=== PATIENT | male | born 1960 | race Caucasian/White ===

== ENCOUNTER 2017-08-02 17:05 | Inpatient (IN) | payer MEDICARE ==
[~2017-08-02] VITALS: Ht 165.1 cm; Wt 56.3 kg
[~2017-08-02 17:05] MED LIST: ACET325T14 PO; AMPICILLIN TRIHYDRATE PO; CIPR500T87 PO; DIAZ5TAB PO; DIAZ5TAB4 PO; ENOX40SY4 SQ; FING0.5C3 PO; FLUC200T PO; LEVO500T47 PO; LEVO750T26 PO; LORA-445 PO; METR500T PO; NITR100C PO; NITR100C56 PO; NORT75CA PO; OXYB10TA PO; OXYB5TAB7 PO; PARO30TA3 PO; PARO30TA45 PO; TAMS0.4C2 PO
[2017-08-02] MEDS ORDERED: CEFTRIAXONE PMX 1GM/50ML 50 ML IVPB ONE (17:30)
[2017-08-02] MEDS ORDERED: SODIUM CHLORIDE 0.9% 1,000 ML IV ONE ×2 (17:30→19:00)
[2017-08-02] MEDS ORDERED: SODIUM CHLORIDE 0.9% 1,000ML IVBOLUS ONE ×2 (17:30→19:00)
[2017-08-02] MEDS ORDERED: SODIUM CHLORIDE FLUSH 10ML SYR IVF ONE (17:30)
[2017-08-02] MEDS ORDERED: CEFTRIAXONE PMX 1GM/50ML 50 ML ONE (17:58)
[2017-08-02] MEDS ORDERED: NITR100C56 PO (18:09)
[2017-08-02] MEDS ORDERED: OXYB15TA PO (18:09)
[2017-08-02] MEDS ORDERED: POTASSIUM CHLORIDE 40 MEQ in SODIUM CHLORIDE 0.9% 500 ML IV ONE (19:00)
[2017-08-02] MEDS ORDERED: DEXTROSE 50%, 50ML SYRINGE IVPush ONE (19:00)
[2017-08-02] MEDS ORDERED: CALCIUM CHLORIDE 13.6 MEQ in SODIUM CHLORIDE 0.9% 100 ML IV ONE (19:00)
[2017-08-02] MEDS ORDERED: ACETAMINOPHEN 650 MG SUPP PR ONE (19:00)
[2017-08-02] MEDS ORDERED: ACETAMINOPHEN 650 MG SUPP ONE (19:27)
[2017-08-02] MEDS: PLEASE ENTER ALLERGIES MC SCH ×4 (19:29→23:04)
[2017-08-02 19:53] LABS: BLOOD UREA NITROGEN 15 mg/dL (7-18)
[2017-08-02] MEDS ORDERED: VANCOMYCIN PER PHARMACY MC PRN (21:00)
[2017-08-02] MEDS ORDERED: DIAZEPAM 5 MG TABLET PO PRN (22:00)
[2017-08-02] MEDS ORDERED: ONDANSETRON 2MG/ML, 2ML IVPush PRN (22:00)
[2017-08-02] MEDS ORDERED: POLYETHYLENE GLYCOL 17 GM PACKET PO PRN (22:00)
[2017-08-02] MEDS ORDERED: HYDROmorphone 2 MG/ML, 1ML IVPush PRN (22:00)
[2017-08-02] MEDS ORDERED: DOCUSATE 100 MG CAPSULE PO PRN (22:00)
[2017-08-02] MEDS ORDERED: LIDOCAINE 1%, 20ML ONE (22:03)
[2017-08-02] MEDS ORDERED: PHENYLEPHRINE NASAL 1%, 15ML SPRAY ONE (22:04)
[2017-08-02] MEDS ORDERED: PHARMACOKINETIC MONITORING MC PRN (23:00)
[2017-08-02] MEDS ORDERED: VANCOMYCIN 1,200 MG in SODIUM CHLORIDE 0.9% 250 ML IV ONE (23:00)
[2017-08-02 23:01] LABS: HEMATOCRIT 32.6 % (39.2-51.8); HEMOGLOBIN 11.1 g/dL (13.7-18.0); WHITE BLOOD COUNT 8.9 x10^3/uL (3.4-10)
[2017-08-02] MEDS: NOREPINEPHRINE 4 MG in SODIUM CHLORIDE 0.9% 246 ML IV PRN (23:04)
[2017-08-03 01:00] VITALS: BP 85/51
[2017-08-03] MEDS: POTASSIUM CHLORIDE 20 MEQ in SODIUM CHLORIDE 0.9% 1,000 ML IV SCH ×3 (01:18→17:50)
[2017-08-03 04:00] VITALS: BP 107/79
[2017-08-03 06:04] LABS: BLOOD UREA NITROGEN 14 mg/dL (7-18)
[2017-08-03 06:05] LABS: HEMATOCRIT 35.7 % (39.2-51.8); HEMOGLOBIN 12.3 g/dL (13.7-18.0); WHITE BLOOD COUNT 14.3 x10^3/uL (3.4-10)
[2017-08-03] MEDS ORDERED: PANTOPROZOLE 40MG TABLET PO SCH (07:30)
[2017-08-03] MEDS: PAROXETINE 10 MG TABLET PO SCH (08:35)
[2017-08-03] MEDS: OXYBUTYNIN CHLORIDE 5 MG TABLET PO SCH ×3 (08:35→20:05)
[2017-08-03] MEDS: SENNA/DOCUSATE TABLET PO SCH (08:35)
[2017-08-03] MEDS: PIPERACILLIN/TAZO/PMX 3.375GM 50 ML IV SCH ×2 (09:51→16:18)
[2017-08-03] MEDS: ACETAMINOPHEN 325 MG TABLET PO PRN ×2 (13:30→21:45)
[2017-08-03] MEDS ORDERED: VANCOMYCIN 1,200 MG in SODIUM CHLORIDE 0.9% 250 ML IV SCH (17:00)
[2017-08-03] MEDS: PIPERACILLIN/TAZO 3.375 GM in SODIUM CHLORIDE 0.9% 50 ML IV SCH (21:45)
[2017-08-03] MEDS ORDERED: IBUPROFEN 800 MG TABLET PO PRN (23:30)
[2017-08-04] MEDS: NOREPINEPHRINE 4 MG in SODIUM CHLORIDE 0.9% 246 ML IV PRN (03:49)
[2017-08-04 04:00] VITALS: BP_SYST 124; BP_SYST 93; BP_DIAS 107; BP_DIAS 65
[2017-08-04] MEDS: PIPERACILLIN/TAZO 3.375 GM in SODIUM CHLORIDE 0.9% 50 ML IV SCH ×4 (04:16→22:31)
[2017-08-04 04:45] LABS: WHITE BLOOD COUNT 7.4 x10^3/uL (3.4-10)
[2017-08-04 05:02] LABS: ASPARTATE AMINO TRANSFERASE 83 U/L (15-37); BLOOD UREA NITROGEN 15 mg/dL (7-18)
[2017-08-04 06:30] LABS: HEMATOCRIT 34.1 % (39.2-51.8); HEMOGLOBIN 11.7 g/dL (13.7-18.0)
[2017-08-04] MEDS: SENNA/DOCUSATE TABLET PO SCH (09:00)
[2017-08-04] MEDS ORDERED: MAGNESIUM SULFATE PMX 4GM/100M 100 ML IV ONE (09:30)
[2017-08-04] MEDS ORDERED: GADOBUTROL 7.5 MMOL/7.5 ML PFS ONE (10:41)
[2017-08-04] MEDS: PAROXETINE 10 MG TABLET PO SCH (11:30)
[2017-08-04] MEDS: OXYBUTYNIN CHLORIDE 5 MG TABLET PO SCH ×3 (11:30→20:03)
[2017-08-04] MEDS: FAMOTIDINE 20 MG/2 ML IVPush SCH ×2 (11:30→20:03)
[2017-08-04] MEDS: SODIUM CHLORIDE 0.9% 1,000 ML IV SCH ×2 (11:30→22:32)
[2017-08-05 04:00] VITALS: BP 106/77
[2017-08-05] MEDS: PIPERACILLIN/TAZO 3.375 GM in SODIUM CHLORIDE 0.9% 50 ML IV SCH ×2 (04:08→09:54)
[2017-08-05 08:04] LABS: ASPARTATE AMINO TRANSFERASE 64 U/L (15-37); BLOOD UREA NITROGEN 10 mg/dL (7-18)
[2017-08-05] MEDS: SENNA/DOCUSATE TABLET PO SCH (08:09)
[2017-08-05 08:20] LABS: HEMATOCRIT 32.1 % (39.2-51.8); HEMOGLOBIN 11.1 g/dL (13.7-18.0); WHITE BLOOD COUNT 3.6 x10^3/uL (3.4-10)
[2017-08-05 08:21] LABS: DIFF TOTAL CELLS COUNTED 100 CELL DIFF
[2017-08-05 08:37] LABS: VERIFY COUNTS? YES
[2017-08-05] MEDS: SODIUM CHLORIDE 0.9% 1,000 ML IV SCH (08:47)
[2017-08-05] MEDS: PAROXETINE 10 MG TABLET PO SCH (08:56)
[2017-08-05] MEDS: OXYBUTYNIN CHLORIDE 5 MG TABLET PO SCH ×3 (08:56→21:38)
[2017-08-05] MEDS: FAMOTIDINE 20 MG/2 ML IVPush SCH (08:56)
[2017-08-05] MEDS: CEFTRIAXONE PMX 2GM/50ML 50 ML IV SCH (12:36)
[2017-08-05 13:56] VITALS: BP 113/79
[2017-08-05] MEDS: LACTOBACILLUS CHEW TABLET PO SCH ×2 (18:08→21:38)
[2017-08-05 19:28] VITALS: BP 126/76
[2017-08-06 01:25] VITALS: BP 111/68
[2017-08-06 07:04] VITALS: BP 118/72
[2017-08-06] MEDS: LACTOBACILLUS CHEW TABLET PO SCH ×3 (09:09→22:01)
[2017-08-06] MEDS: SENNA/DOCUSATE TABLET PO SCH (09:09)
[2017-08-06] MEDS: OXYBUTYNIN CHLORIDE 5 MG TABLET PO SCH ×3 (09:09→22:01)
[2017-08-06] MEDS: PAROXETINE 10 MG TABLET PO SCH (09:09)
[2017-08-06] MEDS: CEFTRIAXONE PMX 2GM/50ML 50 ML IV SCH (14:20)
[2017-08-06] MEDS ORDERED: POTASSIUM CHLORIDE 10 MEQ in SODIUM CHLORIDE 0.45% 1,000 ML IV SCH (15:04)
[2017-08-06 16:22] VITALS: BP 115/78
[2017-08-06 20:22] VITALS: BP 111/73
[2017-08-07 00:52] VITALS: BP 127/84
[2017-08-07 06:34] LABS: HEMATOCRIT 34.5 % (39.2-51.8); HEMOGLOBIN 11.8 g/dL (13.7-18.0); WHITE BLOOD COUNT 6.2 x10^3/uL (3.4-10)
[2017-08-07 06:40] LABS: BLOOD UREA NITROGEN 9 mg/dL (7-18)
[2017-08-07 07:55] VITALS: BP 121/79
[2017-08-07] MEDS: OXYBUTYNIN CHLORIDE 5 MG TABLET PO SCH ×3 (09:37→20:22)
[2017-08-07] MEDS: PAROXETINE 10 MG TABLET PO SCH (09:37)
[2017-08-07] MEDS: LACTOBACILLUS CHEW TABLET PO SCH ×3 (09:37→20:22)
[2017-08-07] MEDS: SENNA/DOCUSATE TABLET PO SCH (09:37)
[2017-08-07 13:35] VITALS: BP 110/72
[2017-08-07] MEDS: PIPERACILLIN/TAZO/PMX 3.375GM 50 ML IV SCH ×2 (14:23→20:23)
[2017-08-07 20:17] VITALS: BP 117/75
[2017-08-08] MEDS: PIPERACILLIN/TAZO/PMX 3.375GM 50 ML IV SCH ×4 (02:01→20:04)
[2017-08-08 02:11] VITALS: BP 110/70
[2017-08-08] MEDS ORDERED: VANCOMYCIN PMX 1GM/200ML 200 ML IV ONE (03:30)
[2017-08-08] MEDS: OXYBUTYNIN CHLORIDE 5 MG TABLET PO SCH ×3 (08:05→20:04)
[2017-08-08] MEDS: PAROXETINE 10 MG TABLET PO SCH (08:05)
[2017-08-08] MEDS: SENNA/DOCUSATE TABLET PO SCH (08:05)
[2017-08-08] MEDS: LACTOBACILLUS CHEW TABLET PO SCH ×3 (08:05→20:04)
[2017-08-08 12:51] VITALS: BP 111/75
[2017-08-08 20:23] VITALS: BP 115/74
[2017-08-09 00:36] VITALS: BP 141/95
[2017-08-09] MEDS: PIPERACILLIN/TAZO/PMX 3.375GM 50 ML IV SCH ×4 (02:02→21:50)
[2017-08-09 08:00] VITALS: BP 141/95
[2017-08-09] MEDS: LACTOBACILLUS CHEW TABLET PO SCH ×3 (08:54→20:38)
[2017-08-09] MEDS: OXYBUTYNIN CHLORIDE 5 MG TABLET PO SCH ×3 (08:54→20:38)
[2017-08-09] MEDS: PAROXETINE 10 MG TABLET PO SCH (08:55)
[2017-08-09] MEDS: SENNA/DOCUSATE TABLET PO SCH (08:55)
[2017-08-09 14:35] VITALS: BP 102/66
[2017-08-09 20:19] VITALS: BP 106/74
[2017-08-10 03:30] VITALS: BP 99/52
[2017-08-10] MEDS: PIPERACILLIN/TAZO/PMX 3.375GM 50 ML IV SCH ×3 (03:39→15:30)
[2017-08-10 07:16] VITALS: BP 110/69
[2017-08-10] MEDS ORDERED: CEFU500T50 PO (07:16)
[2017-08-10] MEDS: OXYBUTYNIN CHLORIDE 5 MG TABLET PO SCH (09:54)
[2017-08-10] MEDS: SENNA/DOCUSATE TABLET PO SCH (09:54)
[2017-08-10] MEDS: LACTOBACILLUS CHEW TABLET PO SCH (09:54)
[2017-08-10] MEDS: PAROXETINE 10 MG TABLET PO SCH (09:55)
[2017-08-10 13:34] VITALS: BP 102/67
[2017-08-10 15:30] VITALS: BP 101/64
== END 2017-08-10 16:14 | disposition home health service (06) | DRG 871 ==
LOC: SUATTDRO 19:49 → ED 20:35 → EDIP 21:35 → ICU 23:48 → 4NOR 08-05 13:44
PROVIDERS: ADMIT Family Medicine; ATTEND Hospitalist
PROC: 0T9B70Z Drainage of Bladder with Drainage Device, Via Natural or Artificial Opening (ICD-10-PCS; principal; 2017-08-02)
PROC: 02HV33Z Insertion of Infusion Device into Superior Vena Cava, Percutaneous Approach (ICD-10-PCS; 2017-08-02)
DX: A41.89 Other specified sepsis (principal); G93.41 Metabolic encephalopathy; R65.21 Severe sepsis with septic shock; D68.9 Coagulation defect, unspecified; N20.2 Calculus of kidney with calculus of ureter; N39.0 Urinary tract infection, site not specified; G35 Multiple sclerosis; Z66 Do not resuscitate; B96.4 Proteus (mirabilis) (morganii) as the cause of diseases classified elsewhere; D64.9 Anemia, unspecified; E16.2 Hypoglycemia, unspecified; N40.0 Benign prostatic hyperplasia without lower urinary tract symptoms; R31.0 Gross hematuria; Z16.24 Resistance to multiple antibiotics; Z51.5 Encounter for palliative care; Z74.01 Bed confinement status; Z80.9 Family history of malignant neoplasm, unspecified; Z87.440 Personal history of urinary (tract) infections; Z87.442 Personal history of urinary calculi; Z93.59 Other cystostomy status
CPT/HCPCS: 36415; 70553; 71010; 74176; 80048; 80053; 81001; 82533; 82962; 83605; 83735; 84145; 85025; 85610; 87040; 87077; 87081; 87086; 87186; 93005; 96361; 96365; 96367; 96368; A9585; J0696; J2543; J3370; J3480; J3475; J7030; J7040; J7050; S0028

== ENCOUNTER 2019-02-01 14:45 | Inpatient (IN) | payer MEDICARE ==
[~2019-02-01] VITALS: Ht 175.3 cm; Wt 57.1 kg
[~2019-02-01 14:45] MED LIST changes: +CEFU500T50 PO; +OXYB15TA PO
--- NOTE | 2019-02-01 14:52 | NUR ---
58 Y/O MALE BIB AMBULANCE WITH C/O HYPOXIA. 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 PER REPORT SHE HEARD CRACKLES IN LOWER RIGHT LOBE. PT PLACED ON CONT PULSE OX,NIBP,CORE DROPPER. PT HAS SUPRAPUBIC CATHETER. PER "THE HOME HEALTH RN WAS AT THE HOUSE ABOUT NOON. SHE CHANGED HIS SUPRAPUBIC CATHETER ABOUT 2 HOURS AGO. HE HAS HAD A TEMPERATURE FOR 48 HOURS. HE IS ON GENTAMYCIN FOR A UTI. HE'S BEEN ON IT FOR 3 DAYS. HE DOESN'T WEAR OXYGEN AT HOME, HE IS USUALLY 95% ON ROOM AIR." PIV ESTABLISHED MORTUARY BEAUTICIAN, 20 RIGHT HAND. 250 mL NS ADMINISTERED MORTUARY BEAUTICIAN.
--- NOTE | 2019-02-01 15:20 | NUR ---
IVF STARTED PER MAR. 5 RIGHTS VERIFIED PRIOR. 3 P'S ADDRESSED.
[2019-02-01] MEDS ORDERED: SODIUM CHLORIDE 0.9% 1,000ML IVBOLUS ONE (15:30)
[2019-02-01] MEDS ORDERED: CEFTRIAXONE PMX 1GM/50ML 50 ML IVPB ONE (15:30)
[2019-02-01 15:31] LABS: MEAN CORPUSCULAR HEMOGLOBIN 29.8 pg (27.5-34.5); MEAN CORPUSCULAR HGB CONC 33.5 g/dL (33.2-36.2); MEAN CORPUSCULAR VOLUME 88.9 fL (81-97); MEAN PLATELET VOLUME 7.2 fL (7.4-10.4); PLATELET COUNT 255 x10^3/uL (130-400); RED BLOOD COUNT 5.09 x10^6/uL (4.38-5.82); RED CELL DISTRIBUTION WIDTH 14.9 % (9.4-14.8)
[2019-02-01 15:43] LABS: ALBUMIN 2.9 g/dL (3.4-5.0); ANION GAP 10 mmol/L (5-15); CALCIUM 8.9 mg/dL (8.5-10.1); CHLORIDE 111 mmol/L (98-107)
--- NOTE | 2019-02-01 15:43 | NUR ---
LAB COMPLETED BLOOD CULUTURE DRAW. POC UPDATED WITH FAMILY.
[2019-02-01 15:48] LABS: ALANINE AMINOTRANSFERASE 10 U/L (12-78); ALKALINE PHOSPHATASE 95 U/L (45-117); BILIRUBIN,TOTAL 2.3 mg/dL (0.2-1.0); CREATININE 1.68 mg/dL (0.7-1.3); TOTAL PROTEIN 7.8 g/dL (6.4-8.2); TROPONIN I < 0.015 ng/mL (0.000-0.045)
[2019-02-01] MEDS ORDERED: CEFTRIAXONE PMX 1GM/50ML 50 ML ONE (15:51)
--- NOTE | 2019-02-01 15:55 | NUR ---
IV ABX STARTED PER OCT. 5 RIGHTS VERIFIED PRIOR. 3 P'S ADDRESSED. BC X 2 DRAWN.
[2019-02-01 15:58] LABS: MD YES
[2019-02-01 16:10] LABS: <RBC MORPHOLOGY> NORMAL; BAND#(MANUAL) 3.57 x10^3/uL; BANDS%(MANUAL) 17 % (0-7); LYMPH#(MANUAL) 0.42 x10^3/uL (1-3.4); LYMPHS% (MANUAL) 2 % (22-44); MONOS#(MANUAL) 1.05 x10^3/uL (0.3-2.7); MONOS% (MANUAL) 5 % (2-9); SEG#(MANUAL) 15.96 x10^3/uL (1.8-6.8); SEGS% (MANUAL) 76 % (42-75)
[2019-02-01 16:11] LABS: <PLATELET ESTIMATE> ADEQUATE; <PLT MORPHOLOGY> NORMAL PLT MORPH
--- NOTE | 2019-02-01 16:30 | NUR ---
PT CONTINUES TO HAVE INCREASED WOB. BREATHING ABOUT 30 TIMES A MINUTE SHALLOW AND SLIGHTLY LABORED. ERMD AWARE.
[2019-02-01 16:39] LABS: CULTURE INDICATED? YES; MICROSCOPIC INDICATED
--- NOTE | 2019-02-01 17:00 | NUR ---
ATTEMPTED TO GIVE REPORT. NURSE WANTING TO SPEAK WITH HOSPITAL REGARDING LEVEL OF CARE.
--- NOTE | 2019-02-01 17:15 | NUR ---
HOSPITALIST TO SEE PT.
--- NOTE | 2019-02-01 17:25 | NUR ---
REPORT FROM EDWARD DEAL. PT TO ROOM 36
[2019-02-01] MEDS: SODIUM CHLORIDE 0.9% 1,000 ML IV SCH (17:43)
--- NOTE | 2019-02-01 17:51 | NUR ---
HOSPITALIST AT BEDSIDE AND IS AWARE OF TEMP. NO NEW ORDERS RECEIVED. IVF HUNG PER ORDER.
[2019-02-01] MEDS ORDERED: GUAIFENESIN/DM 200-20MG, 10ML UDC PO PRN (18:00)
[2019-02-01] MEDS ORDERED: ONDANSETRON ODT 4 MG PO PRN (18:00)
[2019-02-01] MEDS ORDERED: LIDODERM 5% PATCH TD PRN (18:00)
[2019-02-01] MEDS ORDERED: DOCUSATE 100 MG CAPSULE PO PRN (18:00)
[2019-02-01 18:04] LABS: FREE T4 (FREE THYROXINE) 1.33 ng/dL (0.76-1.46); THYROID STIMULATING HORMONE 2.87 mIU/L (0.358-3.740)
--- NOTE | 2019-02-01 18:06 | NUR ---
VENTURA, RT AT BEDSIDE TO TRIAL OPTIFLO
--- NOTE | 2019-02-01 18:24 | NUR ---
PT FAILING TRIAL OPTIFLOW. SPO2 84%. PT UPGRADED TO CCU. PER HOSPITALIST/FAMILY, PT DNR/DNI
--- NOTE | 2019-02-01 19:00 | NUR ---
REPORT TO DOMINIK LEON. RECORDING ARTIST AND RT TO TRANSPORT PT TO CT. HOSPITALIST REQUESTING DR [address] CENTRAL LINE. ERP MADE AWARE.
[2019-02-01] MEDS ORDERED: ACETAMINOPHEN 650 MG SUPP ONE (19:05)
[2019-02-01] MEDS ORDERED: METRONIDAZOLE PMX 500MG/100ML 100 ML ONE (19:05)
--- NOTE | 2019-02-01 19:07 | NUR ---
Report from Oralia LEON, pt remains febrile, no orders from admitting MD for rectal tylenol.
--- NOTE | 2019-02-01 19:09 | NUR ---
MD Mena notified of pts continued temp, ok to give rectal tylenol per MD mena, order still not receieved, will put in verbal order
[2019-02-01] MEDS ORDERED: HEPARIN 5,000 UNITS/ML, 1ML ONE (19:10)
[2019-02-01] MEDS: METRONIDAZOLE PMX 500MG/100ML 100 ML IV SCH (19:16)
[2019-02-01] MEDS: HEPARIN 5,000 UNITS/ML, 1ML SQ SCH (19:16)
[2019-02-01] MEDS ORDERED: ACETAMINOPHEN 650 MG SUPP PR ONE (19:30)
--- NOTE | 2019-02-01 19:37 | NUR ---
Rectal tylenol administered, brief removed, pt had small/soft/formed bowel movement, pt cleaned, chucks placed under pt, pt repositioned in bed for comfort, new o2 mask applied due to strap breaking.
[2019-02-01] MEDS ORDERED: CEFTAROLINE 600 MG in SODIUM CHLORIDE 0.9% 100 ML IV SCH (20:00)
--- NOTE | 2019-02-01 20:09 | NUR ---
Report to CCU, pt to radiology for VQ scan, to be transported from radiology to CCU with RN and RT
[2019-02-01] MEDS: DIAZEPAM 5 MG TABLET PO SCH (21:29)
[2019-02-01 22:06] LABS: CHLORIDE,URINE RANDOM 85 mmol/L; POTASSIUM,URINE RANDOM 38 mmol/L; SODIUM,URINE RANDOM 78 mmol/L
[2019-02-01] MEDS ORDERED: ALBUTEROL SULFATE 2.5 MG/3 ML ONE (22:18)
[2019-02-01] MEDS: ALBUTEROL SULFATE 2.5 MG/3 ML NPPB SCH (22:24)
[2019-02-01] MEDS ORDERED: ALBUTEROL SULFATE 2.5 MG/3 ML NPPB PRN (22:30)
[2019-02-02] MEDS: METRONIDAZOLE PMX 500MG/100ML 100 ML IV SCH (02:30)
[2019-02-02] MEDS: SODIUM CHLORIDE 0.9% 1,000 ML IV SCH ×2 (02:30→11:00)
[2019-02-02] MEDS: HEPARIN 5,000 UNITS/ML, 1ML SQ SCH ×3 (02:33→18:00)
[2019-02-02 04:37] LABS: MEAN CORPUSCULAR HEMOGLOBIN 29.6 pg (27.5-34.5); MEAN CORPUSCULAR HGB CONC 33.1 g/dL (33.2-36.2); MEAN CORPUSCULAR VOLUME 89.3 fL (81-97); MEAN PLATELET VOLUME 7.1 fL (7.4-10.4); PLATELET COUNT 209 x10^3/uL (130-400); RED BLOOD COUNT 4.68 x10^6/uL (4.38-5.82); RED CELL DISTRIBUTION WIDTH 15.3 % (9.4-14.8)
[2019-02-02 04:48] LABS: ALBUMIN 2.4 g/dL (3.4-5.0); ANION GAP 8 mmol/L (5-15); CALCIUM 8.4 mg/dL (8.5-10.1); CHLORIDE 117 mmol/L (98-107)
[2019-02-02 04:51] LABS: ALANINE AMINOTRANSFERASE 9 U/L (12-78); ALKALINE PHOSPHATASE 78 U/L (45-117); BILIRUBIN,TOTAL 1.2 mg/dL (0.2-1.0); CREATININE 1.35 mg/dL (0.7-1.3); TOTAL PROTEIN 6.7 g/dL (6.4-8.2)
[2019-02-02 04:59] LABS: CHOL/HDL RATIO 2.2
[2019-02-02 05:00] LABS: MD YES
[2019-02-02 05:02] LABS: <PLATELET ESTIMATE> ADEQUATE; <PLT MORPHOLOGY> NORMAL PLT MORPH; <RBC MORPHOLOGY> NORMAL; BAND#(MANUAL) 3.48 x10^3/uL; BANDS%(MANUAL) 29 % (0-7); LYMPHS% (MANUAL) 5 % (22-44); MONOS#(MANUAL) 0.12 x10^3/uL (0.3-2.7); MONOS% (MANUAL) 1 % (2-9); SEGS% (MANUAL) 65 % (42-75)
[2019-02-02] MEDS: ALBUTEROL SULFATE 2.5 MG/3 ML NPPB SCH ×5 (07:25→22:00)
[2019-02-02] MEDS: OXYBUTYNIN CHLORIDE 30 MG PO SCH (07:44)
[2019-02-02] MEDS: PAROXETINE 10 MG TABLET PO SCH (07:45)
[2019-02-02] MEDS: DIAZEPAM 5 MG TABLET PO SCH ×2 (07:45→21:00)
[2019-02-02] MEDS: PIPERACILLIN/TAZO/PMX 3.375GM 50 ML IV SCH ×3 (08:26→19:58)
[2019-02-02] MEDS: LINEZOLID PMX 600MG/300ML 300 ML IV SCH ×2 (08:27→20:23)
[2019-02-02] MEDS: NOREPINEPHRINE 4 MG in SODIUM CHLORIDE 0.9% 246 ML IV PRN (12:22)
--- NOTE | 2019-02-02 15:59 | NUR ---
NPO -oral care Addendum: 02/02/19 at [address] Amended: Links added.
[2019-02-03] MEDS: SODIUM CHLORIDE 0.9% 1,000 ML IV SCH ×2 (01:54→10:11)
[2019-02-03] MEDS: PIPERACILLIN/TAZO/PMX 3.375GM 50 ML IV SCH ×4 (01:55→20:21)
[2019-02-03] MEDS: HEPARIN 5,000 UNITS/ML, 1ML SQ SCH ×3 (01:55→17:29)
[2019-02-03] MEDS: ALBUTEROL SULFATE 2.5 MG/3 ML NPPB SCH ×5 (07:10→22:51)
[2019-02-03 07:32] LABS: MEAN CORPUSCULAR HEMOGLOBIN 29.3 pg (27.5-34.5); MEAN CORPUSCULAR HGB CONC 33.5 g/dL (33.2-36.2); MEAN CORPUSCULAR VOLUME 87.5 fL (81-97); MEAN PLATELET VOLUME 6.8 fL (7.4-10.4); PLATELET COUNT 199 x10^3/uL (130-400); RED BLOOD COUNT 4.35 x10^6/uL (4.38-5.82); RED CELL DISTRIBUTION WIDTH 15.5 % (9.4-14.8)
[2019-02-03 07:33] LABS: MD YES
[2019-02-03 07:44] LABS: ANION GAP 9 mmol/L (5-15); CALCIUM 8.3 mg/dL (8.5-10.1); CHLORIDE 118 mmol/L (98-107)
[2019-02-03 07:47] LABS: <PLATELET ESTIMATE> ADEQUATE; <PLT MORPHOLOGY> NORMAL PLT MORPH; <RBC MORPHOLOGY> NORMAL; ALKALINE PHOSPHATASE 56 U/L (45-117); BAND#(MANUAL) 2.45 x10^3/uL; BANDS%(MANUAL) 17 % (0-7); BILIRUBIN,TOTAL 1.4 mg/dL (0.2-1.0); CREATININE 1.28 mg/dL (0.7-1.3); LYMPH#(MANUAL) 1.01 x10^3/uL (1-3.4); LYMPHS% (MANUAL) 7 % (22-44); MONOS#(MANUAL) 0.14 x10^3/uL (0.3-2.7); MONOS% (MANUAL) 1 % (2-9); SEGS% (MANUAL) 75 % (42-75)
[2019-02-03 08:00] LABS: ALANINE AMINOTRANSFERASE 10 U/L (12-78)
[2019-02-03] MEDS: DIAZEPAM 5 MG TABLET PO SCH ×2 (09:00→21:05)
[2019-02-03] MEDS: POTASSIUM CHLORIDE 10% 20 MEQ/15 ML UDC PO SCH ×3 (09:00→21:05)
[2019-02-03] MEDS: PAROXETINE 10 MG TABLET PO SCH (09:00)
[2019-02-03] MEDS: OXYBUTYNIN CHLORIDE 30 MG PO SCH (09:00)
[2019-02-03] MEDS: LINEZOLID PMX 600MG/300ML 300 ML IV SCH ×2 (10:10→21:05)
[2019-02-04] MEDS: NOREPINEPHRINE 4 MG in SODIUM CHLORIDE 0.9% 246 ML IV PRN ×2 (00:03→18:42)
[2019-02-04] MEDS: PIPERACILLIN/TAZO/PMX 3.375GM 50 ML IV SCH ×4 (02:14→19:36)
[2019-02-04] MEDS: HEPARIN 5,000 UNITS/ML, 1ML SQ SCH ×3 (02:15→18:13)
[2019-02-04] MEDS: ALBUTEROL SULFATE 2.5 MG/3 ML NPPB SCH ×5 (06:00→22:00)
[2019-02-04 07:04] LABS: MEAN CORPUSCULAR HGB CONC 33.2 g/dL (33.2-36.2); MEAN CORPUSCULAR VOLUME 90.2 fL (81-97); MEAN PLATELET VOLUME 7.1 fL (7.4-10.4); PLATELET COUNT 216 x10^3/uL (130-400); RED BLOOD COUNT 4.15 x10^6/uL (4.38-5.82); RED CELL DISTRIBUTION WIDTH 15.7 % (9.4-14.8)
[2019-02-04 07:14] LABS: ALBUMIN 1.8 g/dL (3.4-5.0); ANION GAP 11 mmol/L (5-15); CALCIUM 8.5 mg/dL (8.5-10.1); CHLORIDE 120 mmol/L (98-107)
[2019-02-04 07:20] LABS: ALANINE AMINOTRANSFERASE 8 U/L (12-78); ALKALINE PHOSPHATASE 61 U/L (45-117); BILIRUBIN,TOTAL 1.1 mg/dL (0.2-1.0); CREATININE 1.25 mg/dL (0.7-1.3); TOTAL PROTEIN 5.7 g/dL (6.4-8.2)
[2019-02-04 07:31] LABS: MD YES
[2019-02-04 07:33] LABS: <PLATELET ESTIMATE> ADEQUATE; <PLT MORPHOLOGY> NORMAL PLT MORPH; <RBC MORPHOLOGY> NORMAL; BAND#(MANUAL) 0.25 x10^3/uL; BANDS%(MANUAL) 2 % (0-7); LYMPH#(MANUAL) 0.76 x10^3/uL (1-3.4); LYMPHS% (MANUAL) 6 % (22-44); MONOS#(MANUAL) 0.13 x10^3/uL (0.3-2.7); MONOS% (MANUAL) 1 % (2-9); MYELOCYTES# (MANUAL) 0.13 x10^3/uL (0-0); MYELOCYTES% (MANUAL) 1 % (0-0); SEG#(MANUAL) 11.34 x10^3/uL (1.8-6.8); SEGS% (MANUAL) 90 % (42-75)
[2019-02-04] MEDS: LINEZOLID PMX 600MG/300ML 300 ML IV SCH ×2 (08:34→20:41)
[2019-02-04] MEDS: OXYBUTYNIN CHLORIDE 30 MG PO SCH (08:52)
[2019-02-04] MEDS: PAROXETINE 10 MG TABLET PO SCH (08:52)
[2019-02-04] MEDS: DIAZEPAM 5 MG TABLET PO SCH ×2 (08:52→22:23)
--- NOTE | 2019-02-04 10:31 | NUR ---
TF GOAL: PROMOTE @ 75ML/HR *slow start and advancement to goal
[2019-02-04] MEDS ORDERED: POTASSIUM CHLORIDE 10% 40 MEQ/30 ML UDC PO ONE ×2 (11:00→15:00)
[2019-02-04] MEDS ORDERED: MAGNESIUM SULFATE PMX 2GM/50ML 50 ML IV ONE (18:30)
[2019-02-04] MEDS ORDERED: SODIUM CHLORIDE 0.9%, 500ML IVBOLUS ONE (18:30)
[2019-02-05] MEDS: PIPERACILLIN/TAZO/PMX 3.375GM 50 ML IV SCH ×4 (02:25→19:41)
[2019-02-05] MEDS: HEPARIN 5,000 UNITS/ML, 1ML SQ SCH ×3 (02:25→18:19)
[2019-02-05 04:32] LABS: MEAN CORPUSCULAR HEMOGLOBIN 29.5 pg (27.5-34.5); MEAN CORPUSCULAR HGB CONC 32.7 g/dL (33.2-36.2); MEAN CORPUSCULAR VOLUME 90.3 fL (81-97); MEAN PLATELET VOLUME 7.3 fL (7.4-10.4); PLATELET COUNT 176 x10^3/uL (130-400); RED BLOOD COUNT 3.66 x10^6/uL (4.38-5.82)
[2019-02-05 04:41] LABS: CHLORIDE 119 mmol/L (98-107)
[2019-02-05 04:49] LABS: ALANINE AMINOTRANSFERASE 6 U/L (12-78); ALBUMIN 1.5 g/dL (3.4-5.0); ALKALINE PHOSPHATASE 66 U/L (45-117); ANION GAP 8 mmol/L (5-15); BILIRUBIN,TOTAL 0.7 mg/dL (0.2-1.0); CREATININE 1.18 mg/dL (0.7-1.3); TOTAL PROTEIN 5.5 g/dL (6.4-8.2)
[2019-02-05 04:52] LABS: MD YES
[2019-02-05 04:56] LABS: <PLATELET ESTIMATE> ADEQUATE; <PLT MORPHOLOGY> NORMAL PLT MORPH; <RBC MORPHOLOGY> NORMAL; EOS% (MANUAL) 5 % (1-7); LYMPHS% (MANUAL) 5 % (22-44); MONOS#(MANUAL) 0.32 x10^3/uL (0.3-2.7); MONOS% (MANUAL) 4 % (2-9); NRBC % (MANUAL) 1 % (0-1); SEG#(MANUAL) 6.88 x10^3/uL (1.8-6.8); SEGS% (MANUAL) 86 % (42-75)
[2019-02-05] MEDS: ALBUTEROL SULFATE 2.5 MG/3 ML NPPB SCH ×5 (06:30→21:51)
[2019-02-05] MEDS: LINEZOLID PMX 600MG/300ML 300 ML IV SCH ×2 (08:41→21:07)
[2019-02-05] MEDS ORDERED: POTASSIUM PHOSPHATE 66 MEQ in SODIUM CHLORIDE 0.9% 1,000 ML IV ONE (09:00)
[2019-02-05] MEDS: OXYBUTYNIN CHLORIDE 30 MG PO SCH (09:00)
[2019-02-05] MEDS: THIAMINE 100MG TABLET NG SCH (09:27)
[2019-02-05] MEDS: DIAZEPAM 5 MG TABLET PO SCH ×2 (09:27→21:07)
[2019-02-05] MEDS: PAROXETINE 10 MG TABLET PO SCH (09:27)
[2019-02-05] MEDS: ACETAMINOPHEN 325 MG TABLET PO PRN (14:17)
[2019-02-05] MEDS: LACTOBACILLUS 1GM/ PACKET PO SCH (21:07)
[2019-02-06] MEDS: PIPERACILLIN/TAZO/PMX 3.375GM 50 ML IV SCH ×2 (02:23→08:03)
[2019-02-06] MEDS: HEPARIN 5,000 UNITS/ML, 1ML SQ SCH ×3 (02:25→17:28)
[2019-02-06 04:54] LABS: ALBUMIN 1.5 g/dL (3.4-5.0); ANION GAP 8 mmol/L (5-15); CALCIUM 7.6 mg/dL (8.5-10.1); CHLORIDE 118 mmol/L (98-107)
[2019-02-06 04:57] LABS: MEAN CORPUSCULAR HEMOGLOBIN 29.6 pg (27.5-34.5); MEAN CORPUSCULAR HGB CONC 33.1 g/dL (33.2-36.2); MEAN CORPUSCULAR VOLUME 89.3 fL (81-97); MEAN PLATELET VOLUME 7.3 fL (7.4-10.4); PLATELET COUNT 144 x10^3/uL (130-400); RED BLOOD COUNT 3.65 x10^6/uL (4.38-5.82); RED CELL DISTRIBUTION WIDTH 15.9 % (9.4-14.8)
[2019-02-06 04:58] LABS: ALANINE AMINOTRANSFERASE 10 U/L (12-78); ALKALINE PHOSPHATASE 102 U/L (45-117); BILIRUBIN,TOTAL 0.8 mg/dL (0.2-1.0); CREATININE 0.95 mg/dL (0.7-1.3); TOTAL PROTEIN 5.5 g/dL (6.4-8.2)
[2019-02-06] MEDS: ALBUTEROL SULFATE 2.5 MG/3 ML NPPB SCH ×5 (06:00→22:00)
[2019-02-06 06:19] LABS: MD YES
[2019-02-06 06:20] LABS: EOS#(MANUAL) 0.18 x10^3/uL (0.0-0.4); EOS% (MANUAL) 2 % (1-7); LYMPH#(MANUAL) 0.63 x10^3/uL (1-3.4); LYMPHS% (MANUAL) 7 % (22-44); MONOS#(MANUAL) 0.36 x10^3/uL (0.3-2.7); MONOS% (MANUAL) 4 % (2-9); SEG#(MANUAL) 7.83 x10^3/uL (1.8-6.8); SEGS% (MANUAL) 87 % (42-75)
[2019-02-06 06:21] LABS: ANISOCYTOSIS 1+
[2019-02-06 06:22] LABS: <PLATELET ESTIMATE> ADEQUATE; <PLT MORPHOLOGY> NORMAL PLT MORPH
[2019-02-06] MEDS: OXYBUTYNIN CHLORIDE 30 MG PO SCH (09:00)
[2019-02-06] MEDS: DIAZEPAM 5 MG TABLET PO SCH ×2 (10:09→21:00)
[2019-02-06] MEDS: LINEZOLID PMX 600MG/300ML 300 ML IV SCH ×2 (10:09→20:47)
[2019-02-06] MEDS: LACTOBACILLUS 1GM/ PACKET PO SCH ×3 (10:10→21:00)
[2019-02-06] MEDS: THIAMINE 100MG TABLET NG SCH (10:10)
[2019-02-06] MEDS: PAROXETINE 10 MG TABLET PO SCH (10:10)
[2019-02-06 11:31] LABS: CLOSTRIDIUM DIFFICILE ANTIGEN NEGATIVE; CLOSTRIDIUM DIFFICILE TOXIN NEGATIVE (Negative)
[2019-02-06 12:44] VITALS: BP 92/45
[2019-02-06 14:45] VITALS: BP 102/61
[2019-02-06] MEDS: ACETAMINOPHEN 325 MG TABLET PO PRN (15:24)
[2019-02-06 19:55] VITALS: BP 106/72
[2019-02-07 01:26] VITALS: BP 103/66
[2019-02-07] MEDS: HEPARIN 5,000 UNITS/ML, 1ML SQ SCH ×3 (02:34→17:11)
[2019-02-07] MEDS: ACETAMINOPHEN 325 MG TABLET PO PRN ×2 (03:15→13:42)
[2019-02-07 06:07] LABS: BASOPHILS % (AUTO) 0 % (0-1); EOSINOPHILS # (AUTO) 0.43 x10^3/uL (0-0.4); EOSINOPHILS % (AUTO) 3 % (1-7); LYMPHOCYTES # (AUTO) 0.63 x10^3/uL (1-3.4); LYMPHOCYTES % (AUTO) 5 % (22-44); MD NO; MEAN CORPUSCULAR HEMOGLOBIN 29.2 pg (27.5-34.5); MEAN CORPUSCULAR HGB CONC 32.5 g/dL (33.2-36.2); MEAN CORPUSCULAR VOLUME 89.7 fL (81-97); MONOCYTES # (AUTO) 0.38 x10^3/uL (0.2-0.8); MONOCYTES % (AUTO) 3 % (2-9); NEUTROPHILS % (AUTO) 89 % (42-75); PLATELET COUNT 159 x10^3/uL (130-400); RED CELL DISTRIBUTION WIDTH 15.6 % (9.4-14.8)
[2019-02-07 06:30] LABS: CHLORIDE 112 mmol/L (98-107)
[2019-02-07 06:56] LABS: ANION GAP 9 mmol/L (5-15); CALCIUM 7.8 mg/dL (8.5-10.1)
[2019-02-07] MEDS: ALBUTEROL SULFATE 2.5 MG/3 ML NPPB SCH ×6 (06:58→19:14)
[2019-02-07] MEDS: OXYBUTYNIN CHLORIDE 30 MG PO SCH (07:33)
[2019-02-07] MEDS ORDERED: OXYBUTYNIN CHLORIDE 5 MG TABLET ONE (08:43)
[2019-02-07] MEDS: LINEZOLID PMX 600MG/300ML 300 ML IV SCH ×2 (08:47→20:39)
[2019-02-07] MEDS: PAROXETINE 10 MG TABLET PO SCH (08:48)
[2019-02-07] MEDS: THIAMINE 100MG TABLET NG SCH (08:48)
[2019-02-07] MEDS: DIAZEPAM 5 MG TABLET PO SCH (08:48)
[2019-02-07] MEDS: LACTOBACILLUS 1GM/ PACKET PO SCH ×3 (08:48→20:44)
[2019-02-07 09:29] VITALS: BP 102/67
[2019-02-07] MEDS ORDERED: DIAZEPAM 5 MG TABLET PO PRN ×2 (15:30→16:30)
[2019-02-07 20:24] VITALS: BP 126/82
[2019-02-08] MEDS: HEPARIN 5,000 UNITS/ML, 1ML SQ SCH ×3 (01:50→18:01)
[2019-02-08 02:19] VITALS: BP 95/56
[2019-02-08] MEDS: ACETAMINOPHEN 325 MG TABLET PO PRN (02:29)
[2019-02-08] MEDS: ALBUTEROL SULFATE 2.5 MG/3 ML NPPB SCH ×5 (06:00→22:45)
[2019-02-08] MEDS: OXYBUTYNIN CHLORIDE 30 MG PO SCH (07:47)
[2019-02-08 07:49] VITALS: BP 101/67
[2019-02-08] MEDS ORDERED: ACETAMINOPHEN 650 MG/20.3 ML UDC ONE (08:06)
[2019-02-08] MEDS: LINEZOLID PMX 600MG/300ML 300 ML IV SCH ×2 (08:09→20:19)
[2019-02-08] MEDS: LACTOBACILLUS 1GM/ PACKET PO SCH ×3 (08:09→20:19)
[2019-02-08] MEDS: PAROXETINE 10 MG TABLET PO SCH (08:09)
[2019-02-08] MEDS: THIAMINE 100MG TABLET NG SCH (08:09)
[2019-02-08] MEDS: ACETAMINOPHEN 650 MG/20.3 ML UDC PO PRN ×2 (08:10→16:04)
[2019-02-08 15:38] VITALS: BP 104/69
[2019-02-08 20:27] VITALS: BP 113/67
[2019-02-09 01:37] VITALS: BP 126/77
[2019-02-09] MEDS: HEPARIN 5,000 UNITS/ML, 1ML SQ SCH ×3 (02:31→17:03)
[2019-02-09 05:46] LABS: BASOPHILS # (AUTO) 0.01 x10^3/uL (0-0.1); BASOPHILS % (AUTO) 0 % (0-1); EOSINOPHILS # (AUTO) 0.42 x10^3/uL (0-0.4); EOSINOPHILS % (AUTO) 3 % (1-7); LYMPHOCYTES # (AUTO) 0.91 x10^3/uL (1-3.4); LYMPHOCYTES % (AUTO) 5 % (22-44); MD NO; MEAN CORPUSCULAR HEMOGLOBIN 29.8 pg (27.5-34.5); MEAN CORPUSCULAR HGB CONC 33.6 g/dL (33.2-36.2); MEAN CORPUSCULAR VOLUME 88.8 fL (81-97); MEAN PLATELET VOLUME 7.2 fL (7.4-10.4); MONOCYTES # (AUTO) 0.68 x10^3/uL (0.2-0.8); MONOCYTES % (AUTO) 4 % (2-9); NEUTROPHILS # (AUTO) 14.76 x10^3/uL (1.8-6.8); NEUTROPHILS % (AUTO) 88 % (42-75); PLATELET COUNT 199 x10^3/uL (130-400); RED BLOOD COUNT 3.76 x10^6/uL (4.38-5.82); RED CELL DISTRIBUTION WIDTH 15.3 % (9.4-14.8)
[2019-02-09 05:47] LABS: ANION GAP 7 mmol/L (5-15); CALCIUM 7.8 mg/dL (8.5-10.1); CHLORIDE 106 mmol/L (98-107); CREATININE 0.74 mg/dL (0.7-1.3)
[2019-02-09] MEDS: ALBUTEROL SULFATE 2.5 MG/3 ML NPPB SCH ×5 (07:12→23:00)
[2019-02-09] MEDS: LINEZOLID PMX 600MG/300ML 300 ML IV SCH ×2 (07:45→20:41)
[2019-02-09] MEDS: OXYBUTYNIN CHLORIDE 30 MG PO SCH (07:46)
[2019-02-09] MEDS: PAROXETINE 10 MG TABLET PO SCH (07:46)
[2019-02-09] MEDS: LACTOBACILLUS 1GM/ PACKET PO SCH ×3 (07:46→20:40)
[2019-02-09] MEDS: THIAMINE 100MG TABLET NG SCH (07:46)
[2019-02-09 07:47] VITALS: BP 119/78
[2019-02-09] MEDS: ACETAMINOPHEN 650 MG/20.3 ML UDC PO PRN (07:54)
[2019-02-09 15:45] VITALS: BP 101/67
[2019-02-09 20:08] VITALS: BP 110/68
[2019-02-10] MEDS: HEPARIN 5,000 UNITS/ML, 1ML SQ SCH ×2 (02:30→10:23)
[2019-02-10 04:00] VITALS: BP 120/66
[2019-02-10] MEDS: ALBUTEROL SULFATE 2.5 MG/3 ML NPPB SCH ×3 (07:05→14:45)
[2019-02-10 08:11] VITALS: BP 108/61
[2019-02-10 08:44] LABS: MEAN CORPUSCULAR HGB CONC 32.7 g/dL (33.2-36.2); MEAN CORPUSCULAR VOLUME 88.7 fL (81-97); PLATELET COUNT 216 x10^3/uL (130-400); RED BLOOD COUNT 3.67 x10^6/uL (4.38-5.82); RED CELL DISTRIBUTION WIDTH 15.3 % (9.4-14.8)
[2019-02-10 08:54] LABS: ANION GAP 7 mmol/L (5-15); CALCIUM 7.8 mg/dL (8.5-10.1); CHLORIDE 105 mmol/L (98-107); CREATININE 0.66 mg/dL (0.7-1.3)
[2019-02-10 09:17] LABS: BASOPHILS # (AUTO) 0.02 x10^3/uL (0-0.1); BASOPHILS % (AUTO) 0 % (0-1); EOSINOPHILS # (AUTO) 0.39 x10^3/uL (0-0.4); EOSINOPHILS % (AUTO) 2 % (1-7); LYMPHOCYTES # (AUTO) 0.84 x10^3/uL (1-3.4); LYMPHOCYTES % (AUTO) 5 % (22-44); MD SCAN; MONOCYTES # (AUTO) 0.82 x10^3/uL (0.2-0.8); MONOCYTES % (AUTO) 5 % (2-9); NEUTROPHILS # (AUTO) 15.51 x10^3/uL (1.8-6.8); NEUTROPHILS % (AUTO) 88 % (42-75)
[2019-02-10] MEDS: LACTOBACILLUS 1GM/ PACKET PO SCH (10:23)
[2019-02-10] MEDS: PAROXETINE 10 MG TABLET PO SCH (10:23)
[2019-02-10] MEDS: LINEZOLID PMX 600MG/300ML 300 ML IV SCH (10:23)
[2019-02-10] MEDS: OXYBUTYNIN CHLORIDE 30 MG PO SCH (10:24)
[2019-02-10] MEDS: THIAMINE 100MG TABLET NG SCH (10:24)
[2019-02-10] MEDS: ACETAMINOPHEN 650 MG/20.3 ML UDC PO PRN (10:49)
[2019-02-10 13:56] VITALS: BP 93/55
== END 2019-02-10 15:33 | disposition hospice, home (50) | DRG 871 ==
LOC: ED 17:08 → EDIP 18:11 → CCU 20:31 → 4NOR 02-06 13:14
PROVIDERS: ADMIT Internal Medicine; ATTEND Internal Medicine
PROC: 0T9B70Z Drainage of Bladder with Drainage Device, Via Natural or Artificial Opening (ICD-10-PCS; principal; 2019-02-01)
PROC: 0D9P70Z Drainage of Rectum with Drainage Device, Via Natural or Artificial Opening (ICD-10-PCS; 2019-02-06)
DX: A41.9 Sepsis, unspecified organism (principal); J15.9 Unspecified bacterial pneumonia; E43 Unspecified severe protein-calorie malnutrition; J96.01 Acute respiratory failure with hypoxia; N17.0 Acute kidney failure with tubular necrosis; R53.2 Functional quadriplegia; R65.21 Severe sepsis with septic shock; N10 Acute pyelonephritis; Z68.1 Body mass index [BMI] 19.9 or less, adult; E87.0 Hyperosmolality and hypernatremia; R19.7 Diarrhea, unspecified; B95.5 Unspecified streptococcus as the cause of diseases classified elsewhere; B95.2 Enterococcus as the cause of diseases classified elsewhere; Z66 Do not resuscitate; D63.8 Anemia in other chronic diseases classified elsewhere; E83.42 Hypomagnesemia; E87.6 Hypokalemia; F03.90 Unspecified dementia, unspecified severity, without behavioral disturbance, psychotic disturbance, mood disturbance, and anxiety; G35 Multiple sclerosis; I10 Essential (primary) hypertension; N20.0 Calculus of kidney; N31.9 Neuromuscular dysfunction of bladder, unspecified; N40.0 Benign prostatic hyperplasia without lower urinary tract symptoms; Z16.24 Resistance to multiple antibiotics; R13.10 Dysphagia, unspecified; Z51.5 Encounter for palliative care; Z79.899 Other long term (current) drug therapy; Z74.01 Bed confinement status; Z87.891 Personal history of nicotine dependence
CPT/HCPCS: 36415; 36600; 71045; 71250; 74018; 76700; 78582; 80048; 80053; 80061; 80170; 81001; 82436; 82533; 82803; 83036; 83605; 83690; 83735; 84100; 84133; 84300; 84439; 84443; 84484; 85025; 87040; 87070; 87077; 87081; 87086; 87186; 87205; 87324; 93005; 94640; 96361; 96365; 99285; G0378; J0696; J0712; J1644; J2020; J2543; J7613; A9540; A9558; C9898; J3475; J7030; J7040; J7050

== ENCOUNTER 2019-02-10 15:33 | Inpatient (IN) | payer OTHER ==
[~2019-02-10] VITALS: Ht 175.3 cm; Wt 57.1 kg
[2019-02-10] MEDS ORDERED: SODIUM CHLORIDE 0.9% 1,000 ML IV SCH (16:01)
[2019-02-10] MEDS ORDERED: ONDANSETRON 2MG/ML, 2ML IVPush PRN (16:30)
[2019-02-10] MEDS ORDERED: SCOPOLAMINE PATCH, 1.5MG PATCH.TD72 TD SCH (16:30)
[2019-02-10] MEDS ORDERED: PLEASE ENTER HEIGHT AND WEIGHT MC SCH ×2 (16:30)
[2019-02-10] MEDS ORDERED: ATROPINE OPHTH SOLN 1%, 5ML BC PRN (16:30)
[2019-02-10] MEDS ORDERED: MORPHINE SULFATE 4 MG/ML, 1ML IVPush PRN ×3 (16:30)
[2019-02-10] MEDS: LORazepam 2 MG/ML, 1ML IVPush PRN (21:58)
[2019-02-11] MEDS: LORazepam 2 MG/ML, 1ML IVPush PRN ×3 (01:23→13:30)
[2019-02-11] MEDS ORDERED: morphine SULFATE 125 MG in SODIUM CHLORIDE 0.9% 237.5 ML IV PRN (11:00)
[2019-02-11] MEDS ORDERED: HYDROmorphone 10 MG in SODIUM CHLORIDE 0.9% 245 ML IVPB PRN (15:58)
[2019-02-11] MEDS: LORazepam 2 MG/ML, 1ML IVPush SCH ×2 (17:11→22:00)
== END 2019-02-12 03:15 | disposition expired | DRG 871 ==
LOC: 4NOR 15:33 → 3NW 20:30
PROVIDERS: ADMIT Internal Medicine; ATTEND Internal Medicine
DX: A41.9 Sepsis, unspecified organism (principal); E43 Unspecified severe protein-calorie malnutrition; J18.9 Pneumonia, unspecified organism; J96.01 Acute respiratory failure with hypoxia; R53.2 Functional quadriplegia; R65.21 Severe sepsis with septic shock; Z68.1 Body mass index [BMI] 19.9 or less, adult; D64.9 Anemia, unspecified; F03.90 Unspecified dementia, unspecified severity, without behavioral disturbance, psychotic disturbance, mood disturbance, and anxiety; G35 Multiple sclerosis; N20.0 Calculus of kidney; N31.9 Neuromuscular dysfunction of bladder, unspecified; R13.10 Dysphagia, unspecified; Z51.5 Encounter for palliative care
CPT/HCPCS: G0378; J2270; J2060; J7050